=== PATIENT | female | born 1990 | race Caucasian/White ===

== ENCOUNTER 2018-11-27 18:50 | Emergency (ER) | payer BC ==
[~2018-11-27] VITALS: Ht 157.5 cm; Wt 89.2 kg
[2018-11-27 19:01] VITALS: Ht 157.5 cm; Wt 89.2 kg
[2018-11-27] MEDS ORDERED: KETOROLAC 60 MG INJ IM STA (22:20)
--- NOTE | 2018-11-27 22:20 | ERD ---
ER Documentation Chief Complaint Chief Complaint swelling/pain lower back x 3 days HPI 28-year-old female, previously healthy, complaining of acute onset of lower back pain after lifting a heavy object while the patient was cleaning her house 3 days ago. The pain is dull, constant, 7/10, worsened by lateral rotation and flexion. She denies distal weakness, numbness or tingling. No incontinence. The patient has not taken any medications for the pain. ROS All systems reviewed and are negative except as per history of present illness. Medications Home Meds Active Scripts Acetaminophen* (Tylenol*) 325 Mg Tablet, 2 TAB PO Q8 PRN for PAIN AND OR ELEVATED TEMP, #20 TAB Prov:PARADISE EDDY MD 11/27/18 Baclofen* (Baclofen*) 10 Mg Tablet, 10 MG PO Q8 for 5 Days, #15 TAB Prov:PARADISE EDDY MD 11/27/18 Ibuprofen* (Motrin*) 600 Mg Tab, 600 MG PO Q8 for 7 Days, #21 TAB Prov:PARADISE EDDY MD 11/27/18 Allergies Allergies: Coded Allergies: No Known Drug Allergies (Verified Allergy, Unknown, 11/27/18) PMhx/Soc Medical and Surgical Hx: pt denies Medical Hx, pt denies Surgical Hx Hx Alcohol Use: No Hx Substance Use: No Hx Tobacco Use: No Smoking Status: Never smoker FmHx Family History: No diabetes, No coronary disease Physical Exam Vitals Vital Signs Date Temp Pulse Resp B/P (MAP) Pulse Ox O2 O2 Flow FiO2 Time Delivery Rate 11/27/18 98.4 78 18 126/58 98 19:01 (80) Physical Exam Patient is in no acute distress, vital signs stable. Alert and fully oriented. EYES: PERRLA, EOMI, Sclera and conjunctiva appear normal. EARS: Canals clear, tympanic membranes WNL THROAT: Normal oropharynx. NECK: Supple, No lymphadenopathy. Full ROM without pain or tenderness. HEART: RRR, no rubs, murmurs, clicks or gallops. LUNGS: Clear to auscultation. ABDOMEN: Soft, non-tender without masses or hepatosplenomegaly. EXTREMITIES: No edema bilaterally. BACK: Normal inspection, no deformity, decreased range of motion for lateral rotation and flexion. No vertebral tenderness, bilateral lower muscle spasm. NEURO: Cranial nerves grossly intact, no motor or sensory deficit Results 24 hrs Laboratory Tests Test 11/27/18 22:33 POC Beta HCG, Qualitative NEGATIVE Current Medications Medications Dose Sig/Soledad Start Time Status Last (Trade) Ordered Route PRN Stop Time Admin Dose Reason Admin Ketorolac 60 mg ONCE STAT 11/27/18 DC 11/27/18 Tromethamine IM 22:20 22:42 (Toradol) 11/27/18 22:41 Procedures/MDM At the time of discharge, patient nontoxic, ambulating, vital signs stable, no gross neurologic deficit. differential diagnosis include but not limited to: lumbar sprain/strain, sciatica, herniated disk, UTI less likely pyelo, kidney stone. Neurovascular exam grossly intact. no clinical findings suggestive of acute infectious process, no acute deformity, no edema, no rashes. Physical examination and clinical presentation consistent most likely with acute on chronic back pain with sciatica. During the ED course the patient received treatment with Toradol IM presenting overall improvement of the symptoms. Results and clinical impression discussed with the patient who agrees with management. The patient is stable to be treated outpatient and will be discharged home with recommendations and close monitoring The patient was instructed to follow up with the primary care provider in the next 48h. If symptoms persist, worsen or new symptoms develop, then patient should return to the ED immediately. Instructions explained and given to patient with acknowledgment and demonstrated understanding. Disclaimer: Inadvertent spelling and grammatical errors are likely due to EHR/dictation software use and do not reflect on the overall quality of patient care. Also, please note that the electronic time recorded on this note does not necessarily reflect the actual time of the patient encounter. Departure Diagnosis: Primary Impression: Acute back pain Additional Impression: Lumbar strain Condition: Stable Additional Instructions: Muchas benny por [facility] para loyd servicio. Esperamos que en loyd visita a la mayra de emergencia loyd problema medico haya sido solucionado y que se sienta mucho mejor. Para estar seguros que loyd mejoria sigue en proceso, le pedimos el favor de hacer kun marcela de seguimiento medico con loyd doctor primario en los proximos 2-4 laws. Lleve con usted estos documentos y las medicinas recetadas. Si migdalia sintomas empeoran, NO SE ESPERE, por favor regrese a mayra de emergencia INMEDIATAMENTE. En [place] que usted no tenga un mdico de atencin primaria: Llame al mdico o clnica comunitaria de referencia que aparece abajo jeanne las horas de consultorio para hacer kun marcela para que le vean. CLINICAS: [facility] [id number] [facility] [id number] [facility] [phone] [facility] [phone] [facility] [phone] [address] [facility] [phone] PARADISE SCHAEFFER MD Nov 27, 2018 22:20
[2018-11-27] MEDS ORDERED: ACET325T33 PO (23:17)
[2018-11-27] MEDS ORDERED: BACL10TA PO (23:17)
[2018-11-27] MEDS ORDERED: IBUP-1542 PO (23:17)
[2018-11-27 23:23] VITALS: BP 120/81; PULSE 88; RESP 19
== END 2018-11-27 23:23 | disposition home or self-care (01) ==
LOC: FTE 18:50
DX: S39.012A Strain of muscle, fascia and tendon of lower back, initial encounter (principal); X50.0XXA Overexertion from strenuous movement or load, initial encounter; Y92.009 Unspecified place in unspecified non-institutional (private) residence as the place of occurrence of the external cause
CPT/HCPCS: 81025; 96372; 99284; J1885